=== PATIENT | female | born 1980 | race Caucasian/White ===

== ENCOUNTER → 2016-12-24 | Outpatient (CLI) | payer OTHER ==
[~2016-12-24] MED LIST: COMPAZINE10 MG PO; KEFLEX500 MG PO
== END | disposition home or self-care (01) ==
LOC: RAD 17:25
DX: M54.5 Low back pain (principal); M25.572 Pain in left ankle and joints of left foot; V89.0XXD Person injured in unspecified motor-vehicle accident, nontraffic, subsequent encounter

== ENCOUNTER → 2017-12-14 | Outpatient (CLI) | payer OTHER ==
[2017-12-14 09:52] LABS: HEMATOCRIT 40.6 % (37.0-47.0); HEMOGLOBIN 12.9 g/dl (12.0-16.0); MEAN CELL VOLUME 84.1 fl (81.0-99.0); MEAN CORPUSCULAR HGB 26.7 pg (27.0-31.0); MEAN CORPUSCULAR HGB CONC 31.8 g/dl (33.0-37.0); MEAN PLATELET VOLUME 9.8 fl (9.6-12.3); RED BLOOD COUNT 4.83 10*6/uL (4.10-5.10); RED CELL DISTRI WIDTH 13.8 % (0-14.5); WHITE BLOOD COUNT 6.4 10*3/uL (4.8-10.8)
[2017-12-14 10:27] LABS: ALBUMIN 3.3 gm/dl (3.1-4.5); BUN 9 mg/dl (7-24); CHLORIDE 106 mmol/L (98-107); CHOLESTEROL 169 mg/dL (<200); CREATININE 0.81 mg/dL (0.55-1.02); SGOT/AST 9 IU/L (3-35); SGPT/ALT 16 U/L (12-78); SODIUM 140 mmol/L (136-145); TOTAL PROTEIN 7.2 gm/dL (6.4-8.2); TRIGLYCERIDES 108 mg/dl (<150); VLDL CHOLESTEROL 22 mg/dL (6-40)
[2017-12-14 10:28] LABS: ALKALINE PHOSPHATASE 83 U/L (45-117); HDL CHOLESTEROL 73 mg/dl (40-60); LDL CHOLESTEROL 74 mg/dL (9-159)
[2017-12-14 10:47] LABS: VITAMIN D, 25-HYDROXY 32.3 ng/mL (30-100)
== END | disposition home or self-care (01) ==
LOC: LAB 09:09
PROVIDERS: Family Medicine
DX: E55.9 Vitamin D deficiency, unspecified (principal); E74.9 Disorder of carbohydrate metabolism, unspecified; R53.83 Other fatigue; E53.8 Deficiency of other specified B group vitamins; R63.5 Abnormal weight gain; E28.2 Polycystic ovarian syndrome

== ENCOUNTER → 2019-01-31 | Outpatient (CLI) | payer OTHER ==
[2019-01-31 09:17] LABS: HEMATOCRIT 36.4 % (37.0-47.0); HEMOGLOBIN 10.9 g/dl (12.0-16.0); MEAN CELL VOLUME 77.1 fl (81.0-99.0); MEAN CORPUSCULAR HGB 23.1 pg (27.0-31.0); MEAN CORPUSCULAR HGB CONC 29.9 g/dl (33.0-37.0); MEAN PLATELET VOLUME 9.5 fl (9.6-12.3); RED BLOOD COUNT 4.72 10*6/uL (4.10-5.10); RED CELL DISTRI WIDTH 14.6 % (0-14.5); WHITE BLOOD COUNT 7.3 10*3/uL (4.8-10.8)
[2019-01-31 09:32] LABS: ALBUMIN 2.9 gm/dl (3.1-4.5); ALKALINE PHOSPHATASE 78 U/L (45-117); BUN 8 mg/dl (7-24); CHLORIDE 105 mmol/L (98-107); CHOLESTEROL 184 mg/dL (<200); CREATININE 0.79 mg/dL (0.55-1.02); HDL CHOLESTEROL 75 mg/dl (40-60); LDL CHOLESTEROL 78 mg/dL (9-159); SGOT/AST 5 IU/L (3-35); SGPT/ALT 11 U/L (12-78); SODIUM 137 mmol/L (136-145); TOTAL PROTEIN 6.9 gm/dL (6.4-8.2); TRIGLYCERIDES 153 mg/dl (<150); VLDL CHOLESTEROL 31 mg/dL (6-40)
== END | disposition home or self-care (01) ==
LOC: LAB 08:38
PROVIDERS: Family Medicine
DX: E78.00 Pure hypercholesterolemia, unspecified (principal); E55.9 Vitamin D deficiency, unspecified

== ENCOUNTER 2019-06-21 11:45 | Inpatient (IN) | payer OTHER ==
[~2019-06-21] VITALS: Ht 167.6 cm; Wt 81.0 kg
[2019-06-21] VITALS (9 sets, daily range): BP systolic 11–153; BP diastolic 62–75
[2019-06-21 12:29] LABS: BASO % 0.1 % (0.0-1.0); EOS # 0.2 10*3/uL (0.0-0.4); EOS % 0.9 % (1.0-4.0); HEMATOCRIT 33.7 % (37.0-47.0); HEMOGLOBIN 9.4 g/dl (12.0-16.0); LYMPH # 3.9 10*3/uL (1.3-4.4); LYMPH % 18.1 % (27.0-41.0); MEAN CELL VOLUME 67.1 fl (81.0-99.0); MEAN CORPUSCULAR HGB 18.7 pg (27.0-31.0); MEAN CORPUSCULAR HGB CONC 27.9 g/dl (33.0-37.0); MEAN PLATELET VOLUME 8.8 fl (9.6-12.3); MONO # 1.4 10*3/uL (0.1-1.0); MONO % 6.7 % (3.0-9.0); NEUT # 15.8 10*3/uL (2.3-7.9); NEUT % 73.5 % (47.0-73.0); PLATELET COUNT AUTOMATED 467 10*3/uL (130-400); RED BLOOD COUNT 5.02 10*6/uL (4.10-5.10); RED CELL DISTRI WIDTH 17.9 % (0-14.5); WHITE BLOOD COUNT 21.5 10*3/uL (4.8-10.8)
[2019-06-21 12:40] LABS: ACT PARTIAL THROMBO TIME 20.6 SECONDS (20.0-32.1); INTERNATIONAL NORM RATIO 0.9 (2.0-3.5)
[2019-06-21 12:47] LABS: ALBUMIN 2.9 gm/dl (3.1-4.5); ALKALINE PHOSPHATASE 75 U/L (45-117); BUN 18 mg/dl (7-24); CHLORIDE 103 mmol/L (98-107); CREATININE 1.05 mg/dL (0.55-1.02); LIPASE 196 U/L (73-393); SGOT/AST 6 IU/L (3-35); SGPT/ALT 21 U/L (12-78); SODIUM 136 mmol/L (136-145); TOTAL PROTEIN 6.9 gm/dL (6.4-8.2)
[2019-06-21 12:48] LABS: BETA-HCG, QUANT < 1.0 mIU/mL (1-3)
[2019-06-21 12:49] LABS: TROPONIN I 0.881 ng/ml (<0.045)
[2019-06-21 13:20] LABS: RETICULOCYTE % 1.28 % (0.50-2.50)
[2019-06-21 13:25] LABS: IRON 20 ug/dL (50-170); TOTAL IRON BINDING CAPACITY 439 ug/dl (250-450)
[2019-06-21 13:31] LABS: BILIRUBIN NEGATIVE (NEGATIVE); BLOOD 1+ (NEGATIVE); CLARITY SL CLOUDY (CLEAR); COLOR YELLOW (YELLOW); GLUCOSE NEGATIVE (NEGATIVE); KETONE NEGATIVE (NEGATIVE)
[2019-06-21 13:32] LABS: LEUKO ESTERASE NEGATIVE (NEGATIVE); NITRITE NEGATIVE (NEGATIVE); UROBILINOGEN 0.2 E.U./dl (0.2-1.0)
[2019-06-21 13:34] LABS: BACTERIA 3+
[2019-06-21] MEDS ORDERED: ZOLOFT50 MG PO (18:14)
[2019-06-21] MEDS ORDERED: SPIRONOLACTONE50 M1 PO (18:16)
[2019-06-21] MEDS ORDERED: METFORMIN XR500 MG PO (18:16)
[2019-06-21] MEDS ORDERED: [UNRECOGNIZED DRUG - OTHER] PO (18:17)
[2019-06-22] VITALS: BP 116/65
[2019-06-22 06:26] LABS: BASO % 0.1 % (0.0-1.0); EOS # 0.4 10*3/uL (0.0-0.4); EOS % 2.6 % (1.0-4.0); HEMATOCRIT 29.1 % (37.0-47.0); HEMOGLOBIN 8.2 g/dl (12.0-16.0); LYMPH # 3.3 10*3/uL (1.3-4.4); LYMPH % 23.8 % (27.0-41.0); MEAN CELL VOLUME 66.9 fl (81.0-99.0); MEAN CORPUSCULAR HGB 18.9 pg (27.0-31.0); MEAN CORPUSCULAR HGB CONC 28.2 g/dl (33.0-37.0); MEAN PLATELET VOLUME 8.9 fl (9.6-12.3); MONO % 6.9 % (3.0-9.0); NEUT # 9.2 10*3/uL (2.3-7.9); PLATELET COUNT AUTOMATED 369 10*3/uL (130-400); RED BLOOD COUNT 4.35 10*6/uL (4.10-5.10); RED CELL DISTRI WIDTH 17.7 % (0-14.5)
[2019-06-22 06:40] LABS: BUN 10 mg/dl (7-24); CHLORIDE 107 mmol/L (98-107); CREATININE 0.67 mg/dL (0.55-1.02); POTASSIUM 4.1 mmol/L (3.5-5.1); SODIUM 140 mmol/L (136-145)
[2019-06-22 07:35] VITALS: BP 90/70
[2019-06-22 11:48] VITALS: BP 127/65
[2019-06-22 14:14] VITALS: BP 129/63
[2019-06-22 20:00] VITALS: BP 137/68
[2019-06-23] VITALS: BP 122/72
[2019-06-23 08:00] VITALS: BP 120/68
[2019-06-23 12:00] VITALS: BP 123/75
[2019-06-23 16:00] VITALS: BP 132/88
[2019-06-23 20:00] VITALS: BP 127/69
[2019-06-24] VITALS (8 sets, daily range): BP systolic 111–134; BP diastolic 66–84
[2019-06-24 07:44] LABS: BASO % 0.2 % (0.0-1.0); EOS % 0.1 % (1.0-4.0); HEMATOCRIT 28.3 % (37.0-47.0); HEMOGLOBIN 7.8 g/dl (12.0-16.0); LYMPH # 3.2 10*3/uL (1.3-4.4); LYMPH % 20.1 % (27.0-41.0); MEAN CELL VOLUME 67.4 fl (81.0-99.0); MEAN CORPUSCULAR HGB 18.6 pg (27.0-31.0); MEAN CORPUSCULAR HGB CONC 27.6 g/dl (33.0-37.0); MEAN PLATELET VOLUME 9.2 fl (9.6-12.3); MONO # 1.2 10*3/uL (0.1-1.0); MONO % 7.5 % (3.0-9.0); NEUT # 11.3 10*3/uL (2.3-7.9); NEUT % 70.5 % (47.0-73.0); NUCLEATED RED BLOOD CELL 0.1 % (0.0-0.0); PLATELET COUNT AUTOMATED 407 10*3/uL (130-400); RED CELL DISTRI WIDTH 18.3 % (0-14.5)
[2019-06-24 07:58] LABS: BUN 9 mg/dl (7-24); CHLORIDE 109 mmol/L (98-107); CREATININE 0.66 mg/dL (0.55-1.02); POTASSIUM 3.8 mmol/L (3.5-5.1); SODIUM 139 mmol/L (136-145)
[2019-06-24] MEDS ORDERED: PREDNISONE5 MG PO (08:32)
[2019-06-24] MEDS ORDERED: TAMIFLU 75MG CA75 MG PO (08:32)
[2019-06-24] MEDS ORDERED: CEFUROXIME AXE250 MG PO (08:32)
[2019-06-24] MEDS ORDERED: FERROUS SULFAT324 M2 PO (09:07)
[2019-06-28 17:09] LABS: ADENOVIRUS Negative (Negative); INFLUENZA A Negative (Negative); INFLUENZA B Positive (Negative); METAPNEUMOVIRUS Negative (Negative); PARAINFLUENZA 1 Negative (Negative); PARAINFLUENZA 2 Negative (Negative); PARAINFLUENZA 3 Negative (Negative); RHINOVIRUS Negative (Negative); RSV A Negative (Negative); RSV B Negative (Negative)
== END 2019-06-24 17:36 | disposition home or self-care (01) | DRG 871 ==
LOC: ED 11:45 → EDHOLD 15:56 → 4E 15:56
PROVIDERS: Emergency Medicine; Nurse Practitioner Family; ADMIT Internal Medicine
PROC: 0DB78ZX Excision of Stomach, Pylorus, Via Natural or Artificial Opening Endoscopic, Diagnostic (ICD-10-PCS; principal; 2019-06-24)
PROC: 0DBH8ZX Excision of Cecum, Via Natural or Artificial Opening Endoscopic, Diagnostic (ICD-10-PCS; principal; 2019-06-24)
DX: A41.9 Sepsis, unspecified organism (principal); J18.9 Pneumonia, unspecified organism; J45.901 Unspecified asthma with (acute) exacerbation; I24.8 Other forms of acute ischemic heart disease; R55 Syncope and collapse; E11.9 Type 2 diabetes mellitus without complications; R65.20 Severe sepsis without septic shock; F32.9 Major depressive disorder, single episode, unspecified; K29.70 Gastritis, unspecified, without bleeding; K63.9 Disease of intestine, unspecified; J20.8 Acute bronchitis due to other specified organisms; D50.9 Iron deficiency anemia, unspecified; Z88.5 Allergy status to narcotic agent; Z84.1 Family history of disorders of kidney and ureter; Z79.84 Long term (current) use of oral hypoglycemic drugs

== ENCOUNTER → 2019-10-20 | Outpatient (CLI) | payer OTHER ==
[~2019-10-20] MED LIST changes: +CEFUROXIME AXE250 MG PO; +FERROUS SULFAT324 M2 PO; +METFORMIN XR500 MG PO; +PREDNISONE5 MG PO; +SPIRONOLACTONE50 M1 PO; +TAMIFLU 75MG CA75 MG PO; +ZOLOFT50 MG PO; +[UNRECOGNIZED DRUG - OTHER] PO
== END | disposition home or self-care (01) ==
LOC: LAB 12:29
DX: A41.02 Sepsis due to Methicillin resistant Staphylococcus aureus (principal)

== ENCOUNTER → 2019-10-21 | Outpatient (CLI) | payer OTHER | LOC: LAB 12:35 | DX: A41.02 Sepsis due to Methicillin resistant Staphylococcus aureus (principal) ==

== ENCOUNTER → 2019-10-23 | Outpatient (CLI) | payer OTHER | END | disposition home or self-care (01) | LOC: LAB 12:36 | DX: A49.02 Methicillin resistant Staphylococcus aureus infection, unspecified site (principal) ==

== ENCOUNTER → 2020-03-30 | Outpatient (CLI) | payer OTHER ==
[2020-03-30 09:52] LABS: HEMATOCRIT 40.5 % (37.0-47.0); MEAN CELL VOLUME 96.9 fl (81.0-99.0); MEAN CORPUSCULAR HGB 32.3 pg (27.0-31.0); MEAN CORPUSCULAR HGB CONC 33.3 g/dl (33.0-37.0); MEAN PLATELET VOLUME 9.5 fl (9.6-12.3); RED BLOOD COUNT 4.18 10*6/uL (4.10-5.10); RED CELL DISTRI WIDTH 13.4 % (0-14.5); WHITE BLOOD COUNT 8.3 10*3/uL (4.8-10.8)
[2020-03-30 10:06] LABS: ALBUMIN 3.4 gm/dl (3.1-4.5); ALKALINE PHOSPHATASE 132 U/L (45-117); BUN 7 mg/dl (7-24); CHLORIDE 110 mmol/L (98-107); CHOLESTEROL 157 mg/dL (<200); CREATININE 0.76 mg/dL (0.55-1.02); HDL CHOLESTEROL 60 mg/dl (40-60); LDL CHOLESTEROL 63 mg/dL (9-159); POTASSIUM 3.9 mmol/L (3.5-5.1); SGOT/AST 36 IU/L (3-35); SGPT/ALT 67 U/L (12-78); SODIUM 140 mmol/L (136-145); TRIGLYCERIDES 168 mg/dl (<150); VLDL CHOLESTEROL 34 mg/dL (6-40)
[2020-03-30 10:42] LABS: VITAMIN D, 25-HYDROXY 58.9 ng/mL (30-100)
== END | disposition home or self-care (01) ==
LOC: LAB 09:22
PROVIDERS: ATTEND Family Medicine
DX: C18.9 Malignant neoplasm of colon, unspecified (principal); E11.9 Type 2 diabetes mellitus without complications; D64.9 Anemia, unspecified; Z13.220 Encounter for screening for lipoid disorders

== ENCOUNTER → 2020-08-08 | Outpatient (CLI) | payer OTHER ==
[2020-08-08 08:34] LABS: HEMATOCRIT 42.7 % (37.0-47.0); MEAN CORPUSCULAR HGB 29.2 pg (27.0-31.0); MEAN CORPUSCULAR HGB CONC 32.8 g/dl (33.0-37.0); MEAN PLATELET VOLUME 9.4 fl (9.6-12.3); RED BLOOD COUNT 4.8 10*6/uL (4.10-5.10); RED CELL DISTRI WIDTH 13.4 % (0-14.5); WHITE BLOOD COUNT 9.1 10*3/uL (4.8-10.8)
[2020-08-08 09:07] LABS: ALBUMIN 3.1 gm/dl (3.1-4.5); ALKALINE PHOSPHATASE 113 U/L (45-117); BUN 10 mg/dl (7-24); CHLORIDE 108 mmol/L (98-107); POTASSIUM 3.8 mmol/L (3.5-5.1); SGOT/AST 19 IU/L (3-35); SGPT/ALT 60 U/L (12-78); SODIUM 140 mmol/L (136-145); TOTAL PROTEIN 7.2 gm/dL (6.4-8.2)
== END | disposition home or self-care (01) ==
LOC: LAB 08:12
PROVIDERS: ATTEND Family Medicine
DX: C20 Malignant neoplasm of rectum (principal); E55.9 Vitamin D deficiency, unspecified; E74.9 Disorder of carbohydrate metabolism, unspecified; F41.1 Generalized anxiety disorder; E53.0 Riboflavin deficiency; G62.9 Polyneuropathy, unspecified

== ENCOUNTER → 2020-10-20 | Outpatient (CLI) | payer OTHER ==
[2020-10-20 10:11] LABS: BUN 10 mg/dl (7-24); CREATININE 0.71 mg/dL (0.55-1.02)
[2020-10-21 06:07] LABS: IMMUNOGLOBULIN G, QNT 854 mg/dL (586-1602); IMMUNOGLOBULIN M, QNT 406 mg/dL (26-217)
== END | disposition home or self-care (01) ==
LOC: LAB 09:09
PROVIDERS: ATTEND Psychiatry & Neurology Neurology
DX: G62.9 Polyneuropathy, unspecified (principal); R20.0 Anesthesia of skin; R20.2 Paresthesia of skin; Z13.89 Encounter for screening for other disorder

== ENCOUNTER → 2020-12-08 | Outpatient (CLI) | payer OTHER | END | disposition home or self-care (01) | LOC: RAD 11:20 | PROVIDERS: ATTEND Family Medicine | DX: M25.512 Pain in left shoulder (principal); Z95.828 Presence of other vascular implants and grafts ==

== ENCOUNTER → 2021-02-16 | Outpatient (CLI) | payer OTHER ==
[2021-02-16 08:53] LABS: HEMATOCRIT 43.1 % (37.0-47.0); MEAN CELL VOLUME 88.5 fl (81.0-99.0); MEAN CORPUSCULAR HGB 29.6 pg (27.0-31.0); MEAN CORPUSCULAR HGB CONC 33.4 g/dl (33.0-37.0); MEAN PLATELET VOLUME 9.6 fl (9.6-12.3); RED BLOOD COUNT 4.87 10*6/uL (4.10-5.10); RED CELL DISTRI WIDTH 13.2 % (0-14.5); WHITE BLOOD COUNT 10.2 10*3/uL (4.8-10.8)
[2021-02-16 09:08] LABS: ALBUMIN 3.4 gm/dl (3.1-4.5); ALKALINE PHOSPHATASE 127 U/L (45-117); BUN 12 mg/dl (7-24); CHLORIDE 112 mmol/L (98-107); CHOLESTEROL 160 mg/dL (<200); CPK 38 U/L (26-192); CREATININE 0.74 mg/dL (0.55-1.02); LDL CHOLESTEROL 91 mg/dL (9-159); POTASSIUM 4.1 mmol/L (3.5-5.1); SGOT/AST 14 IU/L (3-35); SGPT/ALT 50 U/L (12-78); SODIUM 140 mmol/L (136-145); TOTAL PROTEIN 7.3 gm/dL (6.4-8.2); TRIGLYCERIDES 109 mg/dl (<150)
== END | disposition home or self-care (01) ==
LOC: LAB 08:40
PROVIDERS: ATTEND Family Medicine
DX: C20 Malignant neoplasm of rectum (principal); E74.9 Disorder of carbohydrate metabolism, unspecified; E66.9 Obesity, unspecified; F41.1 Generalized anxiety disorder; E74.00 Glycogen storage disease, unspecified

== ENCOUNTER → 2021-04-07 | Outpatient (CLI) | payer OTHER | END | disposition home or self-care (01) | LOC: RAD 07:38 | PROVIDERS: ATTEND Family Medicine | DX: K21.9 Gastro-esophageal reflux disease without esophagitis (principal); R10.9 Unspecified abdominal pain ==

== ENCOUNTER → 2021-08-19 | Outpatient (CLI) | payer OTHER ==
[2021-08-19 09:32] LABS: HEMATOCRIT 44.8 % (37.0-47.0); MEAN CELL VOLUME 86.5 fl (81.0-99.0); MEAN CORPUSCULAR HGB 28.6 pg (27.0-31.0); MEAN PLATELET VOLUME 9.7 fl (9.6-12.3); RED BLOOD COUNT 5.18 10*6/uL (4.10-5.10); RED CELL DISTRI WIDTH 13.2 % (0-14.5)
[2021-08-19 09:52] LABS: ALKALINE PHOSPHATASE 107 U/L (45-117); BUN 8 mg/dl (7-24); CHLORIDE 108 mmol/L (98-107); CHOLESTEROL 153 mg/dL (<200); CREATININE 0.86 mg/dL (0.55-1.02); FREE T4 1.12 ng/dl (0.76-1.46); LDL CHOLESTEROL 88 mg/dL (9-159); SGOT/AST 18 IU/L (3-35); SGPT/ALT 43 U/L (12-78); SODIUM 141 mmol/L (136-145); TOTAL PROTEIN 7.5 gm/dL (6.4-8.2); TRIGLYCERIDES 115 mg/dl (<150)
== END | disposition home or self-care (01) ==
LOC: LAB 08:58
PROVIDERS: ATTEND Family Medicine
DX: E74.9 Disorder of carbohydrate metabolism, unspecified (principal); E78.00 Pure hypercholesterolemia, unspecified; R53.83 Other fatigue; G62.9 Polyneuropathy, unspecified

== ENCOUNTER → 2022-12-03 | Outpatient (CLI) | payer OTHER ==
[2022-12-03 09:17] LABS: HEMATOCRIT 42.5 % (37.0-47.0); MEAN CELL VOLUME 90.2 fl (81.0-99.0); MEAN CORPUSCULAR HGB 29.7 pg (27.0-31.0); MEAN CORPUSCULAR HGB CONC 32.9 g/dl (33.0-37.0); MEAN PLATELET VOLUME 9.6 fl (9.6-12.3); RED BLOOD COUNT 4.71 10*6/uL (4.10-5.10); RED CELL DISTRI WIDTH 13.2 % (0-14.5); WHITE BLOOD COUNT 9.9 10*3/uL (4.8-10.8)
[2022-12-03 09:58] LABS: ALKALINE PHOSPHATASE 66 U/L (46-116); BUN 8 mg/dl (9-23); CHLORIDE 104 mmol/L (98-107); CHOLESTEROL 149 mg/dL (<200); CPK 40 U/L (34-171); FREE T4 1.33 ng/dl (0.89-1.76); LDL CHOLESTEROL 64 mg/dL (9-159); POTASSIUM 4.1 mmol/L (3.4-5.1); SGPT/ALT 14 U/L (10-49); TOTAL PROTEIN 6.5 gm/dL (6.0-8.0); TRIGLYCERIDES 159 mg/dl (<150)
[2022-12-03 10:15] LABS: VITAMIN D, 25-HYDROXY 41.5 ng/mL (30-100)
== END | disposition home or self-care (01) ==
LOC: LAB 08:47
PROVIDERS: ATTEND Family Medicine
DX: C18.9 Malignant neoplasm of colon, unspecified (principal); E55.9 Vitamin D deficiency, unspecified; E74.9 Disorder of carbohydrate metabolism, unspecified; R60.9 Edema, unspecified; R53.83 Other fatigue